=== PATIENT | female | born 1985 ===

== ENCOUNTER 2017-10-27 19:42 | Emergency (ER) | payer OTHER ==
[~2017-10-27] VITALS: Ht 160 cm; Wt 70.3 kg
--- NOTE | 2017-10-27 20:48 | ULTRASOUND REPORT ---
EXAMINATION: US TRIPLEX OF LOWER EXTREMITIES, BILATERAL CLINICAL INFORMATION: Leg swelling and pain. COMPARISON: None TECHNIQUE: Color-flow triplex imaging with spectral analysis and compression Doppler were performed on the lower extremities. FINDINGS: Respiratory variation, normal compression and augmented flow are noted throughout the lower extremities. The visualized common femoral vein, superficial femoral vein, profunda femoral vein, popliteal vein and midcalf peroneal and posterior tibial venous segments show no evidence of deep venous thrombosis. There is no Scott's cyst. IMPRESSION: Normal triplex scan without evidence of deep venous thrombosis involving the lower extremities.
--- NOTE | 2017-10-27 22:10 | ED UPPER/LOWER EXTREMITY COMPL ---
History of Present Illness General Chief Complaint: Lower Extremity Problems Stated Complaint: PT BOTH LEGS ARE SWOLLEN JUST CAME BACK [place] Source: patient Exam Limitations: no limitations Vital Signs & Intake/Output Vital Signs & Intake/Output Vital Signs Date Time Temp Pulse Resp B/P B/P Pulse O2 O2 Flow FiO2 Mean Ox Delivery Rate 10/273 98.2 80 16 122/70 98 Room Air Room Air 10/27 1950 97.7 98 18 125/85 100 Room Air Allergies Coded Allergies: No Known Allergies (02/18/16) Triage Note: PT SENT IN BY [employer] TO R/O DVT. PT RECENT FLIGHT HOME FROM [place] AND NOTICED BILAT ANKLE SWELLING. DENIES PAIN. UNVISUALIZED LEGS IN TRIAGE PT WEARING JEANS. +ORAL CONTRACEPTIVE USE. Triage Nurses Notes Reviewed? yes Onset: Gradual Duration: day(s): (1) Timing: no prior history Severity: mild Method of Injury: unknown No Modifying Factors: none Associated Symptoms: swelling : No Patient currently breastfeeds: No HPI: Patient is a 32-year-old female, on control presenting to the emergency department sent in from urgent care to rule out DVT of lower extremities. Patient reports that she recently traveled home from [place] yesterday noticed swelling on her feet. Denies any associated pain. No history of similar symptoms 3 denies chest pain palpitations or shortness of breath. She hasn't done anything to help with symptoms. (Catrina Beltrán) Past History Travel History Traveled to [facility] past 21 day No Medical History Any Pertinent Medical History? 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 No (Catrina Beltrán) Review of Systems Review of Systems Constitutional: Reports: no symptoms. Comments Review of systems: See HPI, All other systems negative. Constitutional, no chills fever or weight loss HEENT: No visual changes no sore throat no congestion Cardiovascular: No chest pain ,palpitation , orthopnea Skin, no jaundice no rashes Respiratory: No dyspnea cough sputum or hemoptysis GI: No nausea no vomiting : No dysuria No hematuria Muscle skeletal: no back pain, no neck pain, Neurologic: No numbness no confusion no headaches Psych: No stress anxiety or depression,. Heme/endocrine: No bruising no bleeding no polyuria or polydipsia Immunology: No splenectomy or history of AIDS (Catrina Beltrán) Physical Exam Physical Exam General Appearance: well developed/nourished, no apparent distress, alert, awake , comfortable Comments: Well-developed well-nourished person in no acute distress HEENT: Atraumatic, normocephalic Neck: Normal inspectionmotion Respiratory: . No respiratory distress. Extremity: Mild nonpitting edema over the dorsum of both feet, no calf tenderness to palpation, normal and equal pulses. Neuro: Alert oriented x3, Skin: Right sunburn noted over the dorsum of both feet. Psych: Mood and affect is normal, memory and judgment is normal. (Catrina Beltrán) Progress Differential Diagnosis: contusion, DVT, sprain, tendon injury, sunburn Plan of Care: Likely reaction from flying. Ultrasound is negative. Minimal edema on exam. Patient educated and elevation. She'll follow up with PCP. no calf Pain on exam. Diagnostic Imaging: Viewed by Me: Ultrasound. Discussed w/RAD: Ultrasound. Radiology Impression: PATIENT: OSBALDO EVANS PRESENT AGE: 32 PATIENT ACCOUNT NO: [id number] : 84 LOCATION: [facility] ORDERING PHYSICIAN: Dale ONTIVEROS SERVICE DATE: 10/27/17 EXAM TYPE: US - US-EXT BILAT VENOUS DOPPLER EXAMINATION: US TRIPLEX OF LOWER EXTREMITIES, BILATERAL CLINICAL INFORMATION: Leg swelling and pain. COMPARISON: None TECHNIQUE: Color- flow triplex imaging with spectral analysis and compression Doppler were performed on the lower extremities. FINDINGS: Respiratory variation, normal compression and augmented flow are noted throughout the lower extremities. The visualized common femoral vein, superficial femoral vein, profunda femoral vein, popliteal vein and midcalf peroneal and posterior tibial venous segments show no evidence of deep venous thrombosis. There is no Scott's cyst. IMPRESSION: Normal triplex scan without evidence of deep venous thrombosis involving the lower extremities. DICTATED BY: Josh Bear MD DATE/TIME DICTATED:10/27/172042 DISHWASHING MACHINE OPERATOR:NARESH DATE/TIME TRANSCRIBED:10/27/172042 CONFIDENTIAL, DO NOT COPY WITHOUT APPROPRIATE AUTHORIZATION. <Electronically signed in Other Vendor System> SIGNED BY: Josh Bear MD 10/27/172047 (Catrina Beltrán) Departure Departure Time of Disposition: 2212 Disposition: HOME OR SELF CARE Condition: Stable Clinical Impression Primary Impression: Leg edema Referrals: Arianna Mcqueen MD (PCP/Family) Additional Instructions: follow up with primary doctor in 5-7 days, call to make appt. elevate legs as much as possible and increas fluid intake. this will help with swelling. return for worsening symptoms or concerns. your ultrasound today was negative for any blood clots. Departure Forms: Customer Survey General Discharge Information RELEASE- WORK (Catrina Beltrán) PA/VISUALIZATION DEVELOPER Co-Sign Statement Statement: ED Attending supervision documentation- [] I saw and evaluated the patient. I have also reviewed all the pertinent lab results and diagnostic results. I agree with the findings and the plan of care as documented in the PA's/VISUALIZATION DEVELOPER's documentation. [X] I have reviewed the ED Record and agree with the PA's/VISUALIZATION DEVELOPER's documentation. [] Additions or exceptions (if any) to the PAs/VISUALIZATION DEVELOPER's note and plan are summarized below: [] (Loc SCHILLING,Josh Monaco)
[2017-10-27 22:23] VITALS: BP 122/70
== END 2017-10-27 22:23 ==
LOC: ERH 19:42
DX: R60.0 Localized edema (principal)
CPT/HCPCS: 93970